=== PATIENT | female | born 1990 | race Caucasian/White ===

== ENCOUNTER 2019-06-07 02:51 | Inpatient (IN) ==
[2019-06-07] MEDS ORDERED: PENICILLIN G POTASSIUM 6 MU in DEXTROSE 5% 250 ML IV STA (03:18)
[2019-06-07] MEDS: LACTATED RINGER'S 1,000 ML IV PRN ×3 (03:30→11:10)
[2019-06-07] MEDS ORDERED: ePHEDrine sulfate 50 MG/ML AMP ONE (03:36)
[2019-06-07] MEDS ORDERED: fentaNYL citrate 100 MCG/2 ML VIAL ONE (03:36)
[2019-06-07] MEDS ORDERED: BUPIVACAINE 0.25% 30 ML VIAL ONE ×2 (03:36→09:00)
[2019-06-07] MEDS ORDERED: fentaNYL 2MCG/ML ROPIV 1.25MG/ML 100 ML BAG EPI ONE (03:37)
[2019-06-07 03:42] LABS: Hematocrit (blood only) 34.5 % (37-47); Hemoglobin 11.7 g/dL (12.0-16.0); Mean Corpuscular Hemoglobin 29.5 pg (25-34); Mean Corpuscular Volume 87.1 fL (80-100); Mean Platelet Volume 11.3 fL (7.4-10.4); Platelet Count 245 K/uL (130-400); RDW Coefficient of Variation 14.1 % (11.5-14.5); RDW Standard Deviation 44.1 fL (36.4-46.3); Red Blood Count 3.96 M/uL (4.2-5.4); White Blood Count 10.57 K/uL (4.8-10.8)
[2019-06-07 03:55] LABS: Mean Corpuscular Hgb Conc 33.9 g/dL (32-36)
--- NOTE | 2019-06-07 05:12 | Anesthesiology Consultation ---
Date of Service June 07, 2019 Assessment & Plan Chart Review Chart Review: Acceptable Risk for Labor Epidural Consults Requested none History Height/Weight Height: 5 ft 3 in Weight: 76.657 kg Allergies Allergy/AdvReac Type Severity Reaction Status Date / Time No Known Allergies Allergy Verified 05/30/19 10:33 Medications Home Medications Medication Instructions Recorded Confirmed Last Taken prenat.vits,toy,wle-eibj-lvxfh 1 tab PO DAILY 01/07/19 05/30/19 Unknown ferrous sulfate PO 04/18/19 05/30/19 Unknown Active Medications Generic Name Dose Route Start Last Admin Trade Name Freq PRN Reason Stop Dose Admin Lactated Ringer's 1,000 mls @ 125 mls/hr 06/07/19 03:18 06/07/19 04:59 Lr IV 06/09/19 03:17 999 mls/hr .Q8H PRN Infusion L&D Protocol Protocol Past Medical History Medical History History of anemia History of cardiac murmur as a child History of varicella Hx of migraines Past Family History Family History Grandmother (Maternal) Neoplasm of brain Past Surgical History Surgical History No significant past surgical history Social History Smoking Status: Never smoker Do You Dip or Chew Tobacco: No Hx Alcohol Use: No Hx Substance Use: No substance use type: does not use Physical Exam Vital Signs Last Vital Signs Temp 36.7 C 06/07/19 03:26 Pulse 97 H 06/07/19 05:08 Resp 18 06/07/19 03:26 BP 113/66 06/07/19 05:08 Pulse Ox 100 06/07/19 05:08 Testing Laboratory Results 06/07/19 03:33
[2019-06-07] MEDS ORDERED: fentaNYL 2MCG/ML ROPIV 1.25MG/ML 100 ML BAG EPI PRN (05:14)
[2019-06-07] MEDS ORDERED: NALOXONE HCL 0.4 MG/1 ML VIAL/CARP IV PRN (05:14)
[2019-06-07] MEDS ORDERED: DiphenhydrAMINE HCL 50 MG/ML VIAL IV PRN (05:14)
[2019-06-07] MEDS ORDERED: ePHEDrine sulfate 50 MG/ML AMP IV PRN (05:14)
[2019-06-07] MEDS ORDERED: NALOXONE HCL 1 MG in SODIUM CHLORIDE 0.9% 1000ML 1,000 ML IV PRN (05:14)
[2019-06-07] MEDS ORDERED: NALBUPHINE HCL INJ 10 MG/ML AMP IV PRN (05:14)
[2019-06-07] MEDS: PENICILLIN G POTASSIUM 3 MU in DEXTROSE 5% 100 ML IV PRN ×2 (07:38→11:22)
--- NOTE | 2019-06-07 09:01 | History & Physical Report ---
Date of Service June 07, 2019 Assessment & Plan (1) Normal labor: (2) Group beta Strep positive: pt has been admitted. labs. has epidural and is comfortable. will see how arom augments labor pattern. receiving 2nd dose of pcn for gbs pos. fhts categ 1. History of Present Illness Chief Complaint: Regular ctx Primary Care Provider: NO PCP 29yo at 37+wks ega presents to L&D with above cc. Patient had ctx all day yesterday that became closer and stronger overnight. Came to L&D in cut off [place] today and was 5cm with regular ctx pattern and was admitted in labor. pnc c/b 1. GBS Pos pnl rh pos, rubella immune, gbs pos obh: G1 gynh: no stds, normal pap smears pmh: h/o migraines psh: neg Allergies Allergy/AdvReac Type Severity Reaction Status Date / Time No Known Allergies Allergy Verified 05/30/19 10:33 Home Medications Home Medications Medication Instructions Recorded Confirmed Type ferrous sulfate 325 mg PO DAILY 06/07/19 06/07/19 History vit-iron fum-folic ac 1 tab PO DAILY 06/07/19 06/07/19 History [ Vitamin] Patient History Medical History History of anemia History of cardiac murmur as a child History of varicella Hx of migraines Surgical History No significant past surgical history Family History Grandmother (Maternal) Neoplasm of brain Social History (Updated 01/10/19 @ 06:27 by Mai Gray) Preferred Language: Kazakh Communication Ability: Effective 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 Beliefs That Will Affect Care: None marital status: Current Living Situation: Spouse Other Information That Helps Us Care for You: No Feels Safe at Home: Yes Safety Concerns: Feels Safe At This Time Smoking Status: Never smoker Do You Dip or Chew Tobacco: No ; Second Hand Exposure: No ; Tobacco Cessation Education Requested by Patient: No Hx Alcohol Use: No Hx Substance Use: No Review of Systems as per Subjective / HPI Physical Exam Constitutional: WD/WN, vitals as above Respiratory: normal respiratory effort, lungs clear to auscultation Cardiovascular: Rate/Rhythm: regular rate and regular rhythm Gastrointestinal (Abdomen): soft gravid nt, efw 6-7# Musculoskeletal: no edema nontender calves Neurologic: grossly normal Psychiatric: A+Ox3, euthymic affect Genitourinary: Manual OB Exam: + cervical dilation 5 cm, + cervical effacement 90%, + station -1 and + amniotic fluid (arom) clear OB Exam Monitor Tracing: + external FHT monitor used (135 mod variability), + external uterine monitor used (q2-3), + category I and + normal FHT variability Results & Data Vital Signs (Past 12 Hours) Vital Signs Temp Pulse Resp BP Pulse Ox 06/07/19 08:53 86 100 06/07/19 08:48 82 100 06/07/19 08:44 85 18 122/71 06/07/19 08:43 85 100 06/07/19 08:38 78 100 06/07/19 08:33 88 123/92 100 06/07/19 08:31 98.2 F 20 06/07/19 08:28 71 100 06/07/19 08:23 77 97 06/07/19 08:18 76 99 06/07/19 08:13 73 113/62 97 06/07/19 08:08 73 97 06/07/19 08:03 75 98 06/07/19 07:59 79 18 110/60 06/07/19 07:58 82 99 06/07/19 07:53 81 99 06/07/19 07:48 75 99 06/07/19 07:43 82 18 130/67 100 06/07/19 07:38 89 99 06/07/19 07:33 78 100 06/07/19 07:29 81 125/66 06/07/19 07:28 82 99 06/07/19 07:23 75 99 06/07/19 07:18 84 99 06/07/19 07:15 91 H 117/62 06/07/19 07:13 89 99 06/07/19 07:08 96 H 100 06/07/19 07:03 91 H 99 06/07/19 07:00 98.2 F 20 06/07/19 06:58 94 H 102/55 L 99 06/07/19 06:53 89 98 06/07/19 06:48 91 H 99 06/07/19 06:45 88 107/56 L 06/07/19 06:43 101 H 98 06/07/19 06:38 101 H 98 06/07/19 06:33 88 98 06/07/19 06:30 94 H 108/57 L 06/07/19 06:28 99 H 98 06/07/19 06:23 95 H 98 06/07/19 06:18 94 H 99 06/07/19 06:13 90 102/59 L 98 06/07/19 06:08 97 H 98 06/07/19 06:03 104 H 98 06/07/19 05:58 95 H 103/59 L 98 06/07/19 05:53 98 H 98 06/07/19 05:48 99 H 98 06/07/19 05:43 109 H 96/57 L 99 06/07/19 05:38 103 H 98 06/07/19 05:33 97 H 99 06/07/19 05:29 93 H 97/56 L 06/07/19 05:28 92 H 99 06/07/19 05:23 87 99 06/07/19 05:18 93 H 98 06/07/19 05:13 83 100 06/07/19 05:11 90 119/64 06/07/19 05:08 97 H 113/66 100 06/07/19 05:05 85 110/56 L 06/07/19 05:03 91 H 100 06/07/19 05:02 85 99/68 L 06/07/19 05:01 77 119/56 L 06/07/19 04:59 90 102/57 L 06/07/19 04:58 83 99 06/07/19 04:57 73 94/50 L 06/07/19 04:56 97 H 105/51 L 06/07/19 04:53 81 100 06/07/19 04:48 84 100 06/07/19 04:43 71 100 06/07/19 04:38 80 100 06/07/19 04:33 87 100 06/07/19 04:28 75 100 06/07/19 04:23 73 100 06/07/19 04:18 79 100 06/07/19 04:13 76 100 06/07/19 04:03 68 100 06/07/19 03:58 79 100 06/07/19 03:53 69 100 06/07/19 03:48 72 100 06/07/19 03:26 98.1 F 18 06/07/19 03:04 80 126/78 06/07/19 03:03 98.1 F 20 Code Status & VTE Plan VTE Prophylaxis Plan VTE Prophylaxis will be ordered: No
[2019-06-07] MEDS ORDERED: OXYTOCIN 30 UNITS/500 ML BAG IV PRN ×2 (09:02→12:44)
--- NOTE | 2019-06-07 09:53 | Labor Progress Brief Note ---
Date of Service June 07, 2019 Subjective Reason For Note: Other (Change of shift) 29yo ; EDC 06/23/19 at 37 (+) wks [place], admitted in active labor. Patient with benign course, received epidural for pain control. Assessment & Plan (1) Supervision of normal first : - tracing Cat II - patient comfortable - continue present plan Physical Exam Gastrointestinal (Abdomen): Gravid, vtx, (+) FHT's, EFW 7 lbs Genitourinary: OB Exam Monitor Tracing: + category II and + normal FHT variability Cervix: 8-9/(+)1 Results & Data Vital Signs (Past 12 Hours) Vital Signs Temp Pulse Resp BP Pulse Ox 06/07/19 09:48 88 99 06/07/19 09:47 77 129/80 06/07/19 09:44 62 119/67 06/07/19 09:43 67 97 06/07/19 09:41 68 130/74 06/07/19 09:38 67 122/69 98 06/07/19 09:35 72 130/73 06/07/19 09:33 73 99 06/07/19 09:32 70 18 118/66 06/07/19 09:29 67 124/72 06/07/19 09:28 77 99 06/07/19 09:27 74 118/73 06/07/19 09:24 70 132/63 06/07/19 09:23 71 99 06/07/19 09:20 77 141/76 H 06/07/19 09:18 79 99 06/07/19 09:17 74 142/77 H 06/07/19 09:15 68 135/64 06/07/19 09:13 81 99 06/07/19 09:12 73 130/68 06/07/19 09:08 80 100 06/07/19 09:03 77 100 06/07/19 08:59 77 124/58 L 06/07/19 08:58 81 99 06/07/19 08:53 86 100 06/07/19 08:48 82 100 06/07/19 08:44 85 18 122/71 06/07/19 08:43 85 100 06/07/19 08:38 78 100 06/07/19 08:33 88 123/92 100 06/07/19 08:31 98.2 F 20 06/07/19 08:28 71 100 06/07/19 08:23 77 97 06/07/19 08:18 76 99 06/07/19 08:13 73 113/62 97 06/07/19 08:08 73 97 06/07/19 08:03 75 98 06/07/19 07:59 79 18 110/60 06/07/19 07:58 82 99 06/07/19 07:53 81 99 06/07/19 07:48 75 99 06/07/19 07:43 82 18 130/67 100 06/07/19 07:38 89 99 06/07/19 07:33 78 100 06/07/19 07:29 81 125/66 06/07/19 07:28 82 99 06/07/19 07:23 75 99 06/07/19 07:18 84 99 06/07/19 07:15 91 H 117/62 06/07/19 07:13 89 99 06/07/19 07:08 96 H 100 06/07/19 07:03 91 H 99 06/07/19 07:00 98.2 F 20 06/07/19 06:58 94 H 102/55 L 99 06/07/19 06:53 89 98 06/07/19 06:48 91 H 99 06/07/19 06:45 88 107/56 L 06/07/19 06:43 101 H 98 06/07/19 06:38 101 H 98 06/07/19 06:33 88 98 06/07/19 06:30 94 H 108/57 L 06/07/19 06:28 99 H 98 06/07/19 06:23 95 H 98 06/07/19 06:18 94 H 99 06/07/19 06:13 90 102/59 L 98 06/07/19 06:08 97 H 98 06/07/19 06:03 104 H 98 06/07/19 05:58 95 H 103/59 L 98 06/07/19 05:53 98 H 98 06/07/19 05:48 99 H 98 06/07/19 05:43 109 H 96/57 L 99 06/07/19 05:38 103 H 98 06/07/19 05:33 97 H 99 06/07/19 05:29 93 H 97/56 L 06/07/19 05:28 92 H 99 06/07/19 05:23 87 99 06/07/19 05:18 93 H 98 06/07/19 05:13 83 100 06/07/19 05:11 90 119/64 06/07/19 05:08 97 H 113/66 100 06/07/19 05:05 85 110/56 L 06/07/19 05:03 91 H 100 06/07/19 05:02 85 99/68 L 06/07/19 05:01 77 119/56 L 06/07/19 04:59 90 102/57 L 06/07/19 04:58 83 99 06/07/19 04:57 73 94/50 L 06/07/19 04:56 97 H 105/51 L 06/07/19 04:53 81 100 06/07/19 04:48 84 100 06/07/19 04:43 71 100 06/07/19 04:38 80 100 06/07/19 04:33 87 100 06/07/19 04:28 75 100 06/07/19 04:23 73 100 06/07/19 04:18 79 100 06/07/19 04:13 76 100 06/07/19 04:03 68 100 06/07/19 03:58 79 100 06/07/19 03:53 69 100 06/07/19 03:48 72 100 06/07/19 03:26 98.1 F 18 06/07/19 03:04 80 126/78 06/07/19 03:03 98.1 F 20
[2019-06-07] MEDS: OXYTOCIN 30 UNITS/500 ML BAG IV PRN ×2 (11:29→12:06)
--- NOTE | 2019-06-07 11:56 | Delivery Summary ---
Vaginal Delivery Summary Date of Service June 07, 2019 Vaginal Delivery Summary Findings: Viable male with Apgars of 8 and 9 baby delivered over a midline second-degree laceration, left periurethral laceration, cord gases and cord blood samples obtained, placenta delivered spontaneously, lacerations repaired with 4-0 Vicryl in a routine fashion, estimated blood loss 300 cc Labor note: The patient is a 29-year-old 1 para 0 with an EDC of 23 June at 37+ weeks gestational age who presented to labor and delivery in active labor. The patient's course was remarkable for a positive GBS culture. Upon admission the patient was 5 cm dilated up. The patient was uncomfortable, anesthesia was consulted, and an epidural was placed. For the positive GBS she was started on penicillin, 6,000,000 unit loading dose and 4, 000,000 units every 4 hours till delivery. After her second dose of penicillin she had artificial rupture of membranes for clear fluid. The patient progressed to full dilatation and began her second stage. She pushed for approximately 20 minutes delivering a viable male with description as above. Cord was clamped and cut, cord gases and cord blood samples were obtained. Placenta delivered spontaneously. Inspection of the perineum showed a midline second- degree laceration, with a second-degree left periurethral laceration. Both lacerations were repaired with 4-0 Vicryl. Estimated blood loss 300 cc. Sponge and needle count was correct.
[2019-06-07 11:59] LABS: Cord Venous Blood HCO3 21 mmol/L (18.4-26.8); Cord Venous Blood PCO2 36 mmHg (30.4-57.2); Cord Venous Blood PO2 23 mmHg (14.1-43.3); Cord Venous Blood pH 7.37 (7.20-7.44)
[2019-06-07 12:02] LABS: Base Excess Cord Arterial Bld -4.8 mEq/L (-9-1.8); CO2 Cord Arterial Blood 38 mmHg (39.1-73.5); HCO3 Cord Arterial Blood 20 mmol/L (19.7-28.5); PO2 Cord Arterial Blood 23.3 % (4.1-31.7); pH Cord Arterial Blood 7.35 (7.1-7.38)
[2019-06-07 12:03] LABS: O2 Saturation Cord Venous Bld < 60.0 % (<68); Oxygen Sat Cord Arterial Blood < 60.0 % (<60)
[2019-06-07] MEDS ORDERED: SUPERCREAM 0.870% 15 GM JAR EXT PRN (12:44)
[2019-06-07] MEDS ORDERED: HYDROCORTISONE ACETATE 25 MG SUPP PR PRN (12:44)
[2019-06-07] MEDS ORDERED: BENZOCAINE 20% AER SPR 82.5 GM CAN EXT PRN (12:44)
[2019-06-07] MEDS ORDERED: DIPHTHERIA/TETANUS/PERTUSSIS 0.5 ML SYR/VIAL IM ONE (12:44)
[2019-06-07] MEDS ORDERED: IBUPROFEN 600 MG TAB PO ONE (12:49)
[2019-06-07] MEDS: ACETAMINOPHEN W/CODEINE #3 1 TAB PO PRN ×2 (14:24→23:51)
--- NOTE | 2019-06-07 16:12 | Anesthesia Procedure Note ---
Date of Service June 07, 2019 Anesthesia Post Epidural Note Vital Signs Vital Signs: Temp Pulse Resp BP Pulse Ox 36.7 C 60 18 84/50 L 100 06/07/19 14:26 06/07/19 16:09 06/07/19 14:26 06/07/19 16:09 06/07/19 11:43 Pain Intensity Bilateral Abdomen: Pain Intensity: 1 Lower Back: Pain Intensity: 4 Notes Mental Status: alert / awake / arousable and participated in evaluation Patient Amnestic to Procedure: No Nausea / Vomiting: adequately controlled Pain: adequately controlled Airway Patency, RR, SpO2: stable & adequate BP & HR: stable & adequate Hydration State: stable & adequate Neuraxial Anesthesia: was administered and sensory block is resolving Anesthetic Complications: no major complications apparent and Pt Satisfied with anesthetic care Epidural: Removed without complications and With tip intact
[2019-06-07] MEDS ORDERED: METHYLERGONOVINE MALEATE 0.2 MG/ML AMP ONE (16:22)
[2019-06-07] MEDS ORDERED: miSOPROStoL 200 MCG TAB PR ONE (16:27)
[2019-06-07] MEDS ORDERED: SODIUM CHLORIDE 0.9% 250 ML IV PRN ×2 (16:27→17:19)
[2019-06-07] MEDS ORDERED: METHYLERGONOVINE MALEATE 0.2 MG/ML AMP IM ONE (16:27)
--- NOTE | 2019-06-07 16:36 | Obstetrical Progress Note ---
Date of Service June 07, 2019 Assessment & Plan (1) hemorrhage: - all pads weighed and counted since delivery - additional 800 cc of blood - will give Methergine IM now - stat H/H ordered - Type & Cross for 2 units - 2nd IV started - Elkins catheter reinserted - may need to consider Bakri balloon if bleeding continues - explained to patient and Subjective Called to evaluate patient for increased bleeding and decreased BP Physical Exam Genitourinary: 560 cc of clotted and unclotted blood evacuated from uterus, uterus firm post evacuation. Cytotec 800ug placed rectally. Results & Data Vital Signs (Past 12 Hours) Vital Signs Temp Pulse Resp BP Pulse Ox 06/07/19 16:24 105 H 111/64 06/07/19 16:22 87 111/64 06/07/19 16:15 69 82/47 L 06/07/19 16:09 60 84/50 L 06/07/19 16:04 65 88/40 L 06/07/19 15:55 80 112/58 L 06/07/19 15:40 93 H 121/59 L 06/07/19 15:25 159/70 H 06/07/19 14:54 68 96/62 L 06/07/19 14:40 69 89/55 L 06/07/19 14:38 65 90/56 L 06/07/19 14:35 60 85/52 L 06/07/19 14:34 60 81/45 L 06/07/19 14:26 98.1 F 72 18 115/72 06/07/19 14:24 80 114/73 06/07/19 14:09 76 110/64 06/07/19 13:54 73 114/62 06/07/19 13:40 78 121/63 06/07/19 13:35 20 06/07/19 13:24 82 115/67 06/07/19 13:09 72 116/65 06/07/19 12:54 76 116/65 06/07/19 12:43 90 114/63 06/07/19 12:30 96 H 18 116/63 06/07/19 12:15 20 06/07/19 12:00 20 06/07/19 11:45 98.1 F 20 06/07/19 11:43 94 H 100 06/07/19 11:38 96 H 100 06/07/19 11:33 90 99 06/07/19 11:28 108 H 18 99 06/07/19 11:23 75 99 06/07/19 11:18 72 99 06/07/19 11:13 76 100 06/07/19 11:08 86 100 06/07/19 11:03 82 100 06/07/19 10:58 78 100 06/07/19 10:53 76 100 06/07/19 10:48 72 100 06/07/19 10:43 72 100 06/07/19 10:38 73 98 06/07/19 10:33 68 98 06/07/19 10:28 77 99 06/07/19 10:23 71 99 06/07/19 10:18 71 99 06/07/19 10:17 98.1 F 20 06/07/19 10:13 74 99 06/07/19 10:08 77 100 06/07/19 10:03 77 99 06/07/19 09:58 86 99 06/07/19 09:53 75 99 06/07/19 09:50 74 18 133/76 06/07/19 09:48 88 99 06/07/19 09:47 77 18 129/80 06/07/19 09:44 62 119/67 06/07/19 09:43 67 97 06/07/19 09:41 68 130/74 06/07/19 09:38 67 122/69 98 06/07/19 09:35 72 130/73 06/07/19 09:33 73 99 06/07/19 09:32 70 18 118/66 06/07/19 09:29 67 124/72 06/07/19 09:28 77 99 06/07/19 09:27 74 118/73 06/07/19 09:24 70 132/63 06/07/19 09:23 71 99 06/07/19 09:20 77 141/76 H 06/07/19 09:18 79 99 06/07/19 09:17 74 142/77 H 06/07/19 09:15 68 135/64 06/07/19 09:13 81 99 06/07/19 09:12 73 130/68 06/07/19 09:08 80 100 06/07/19 09:03 77 100 06/07/19 08:59 77 20 124/58 L 06/07/19 08:58 81 99 06/07/19 08:53 86 100 06/07/19 08:48 82 100 06/07/19 08:44 85 18 122/71 06/07/19 08:43 85 100 06/07/19 08:38 78 100 06/07/19 08:33 88 123/92 100 06/07/19 08:31 98.2 F 20 06/07/19 08:28 71 100 06/07/19 08:23 77 97 06/07/19 08:18 76 99 06/07/19 08:13 73 113/62 97 06/07/19 08:08 73 97 06/07/19 08:03 75 98 06/07/19 07:59 79 18 110/60 06/07/19 07:58 82 99 06/07/19 07:53 81 99 06/07/19 07:48 75 99 06/07/19 07:43 82 18 130/67 100 06/07/19 07:38 89 99 06/07/19 07:33 78 100 06/07/19 07:29 81 125/66 06/07/19 07:28 82 99 06/07/19 07:23 75 99 06/07/19 07:18 84 99 06/07/19 07:15 91 H 117/62 06/07/19 07:13 89 99 06/07/19 07:08 96 H 100 06/07/19 07:03 91 H 99 06/07/19 07:00 98.2 F 20 06/07/19 06:58 94 H 102/55 L 99 06/07/19 06:53 89 98 06/07/19 06:48 91 H 99 06/07/19 06:45 88 107/56 L 06/07/19 06:43 101 H 98 06/07/19 06:38 101 H 98 06/07/19 06:33 88 98 06/07/19 06:30 94 H 108/57 L 06/07/19 06:28 99 H 98 06/07/19 06:23 95 H 98 06/07/19 06:18 94 H 99 06/07/19 06:13 90 102/59 L 98 06/07/19 06:08 97 H 98 06/07/19 06:03 104 H 98 06/07/19 05:58 95 H 103/59 L 98 06/07/19 05:53 98 H 98 06/07/19 05:48 99 H 98 06/07/19 05:43 109 H 96/57 L 99 06/07/19 05:38 103 H 98 06/07/19 05:33 97 H 99 06/07/19 05:29 93 H 97/56 L 06/07/19 05:28 92 H 99 06/07/19 05:23 87 99 06/07/19 05:18 93 H 98 06/07/19 05:13 83 100 06/07/19 05:11 90 119/64 06/07/19 05:08 97 H 113/66 100 06/07/19 05:05 85 110/56 L 06/07/19 05:03 91 H 100 06/07/19 05:02 85 99/68 L 06/07/19 05:01 77 119/56 L 06/07/19 04:59 90 102/57 L 06/07/19 04:58 83 99 06/07/19 04:57 73 94/50 L 06/07/19 04:56 97 H 105/51 L 06/07/19 04:53 81 100 06/07/19 04:48 84 100 06/07/19 04:43 71 100 06/07/19 04:38 80 100 06/07/19 04:33 87 100 PG Care Time/CCT Total # of Minutes Spent Total Time Spent with Patient: Total time spent is greater than 50% in coordination of care (as documented) at patient's floor/unit and/or counseling patient:
[2019-06-07] MEDS ORDERED: LACTATED RINGER'S 1,000 ML IV PRN (16:38)
[2019-06-07] MEDS: IBUPROFEN 600 MG TAB PO PRN (16:51)
[2019-06-07 16:53] LABS: Hematocrit (blood only) 25.3 % (37-47); Hemoglobin 8.6 g/dL (12.0-16.0)
--- NOTE | 2019-06-07 18:07 | Obstetrical Progress Note ---
Date of Service June 07, 2019 Assessment & Plan (1) hemorrhage: -Hemoglobin is 8.6, suspect that the value will go much lower as the patient becomes more hemodynamically stable. -The patient was orthostatic prior to this latest blood loss and could not stand and passed out twice -As such I do not believe the patient will tolerate the anemia. -Discussed with the patient and recommend transfusing 2 units of packed red blood cells at this time -Risks, benefits, discussed, all questions answered, and permit signed -We will proceed with transfusing 2 units Subjective Patient tired, but stable. Bleeding has markedly decreased. Results & Data Vital Signs (Past 12 Hours) Vital Signs Temp Pulse Resp BP Pulse Ox 06/07/19 18:01 72 129/80 06/07/19 17:54 71 128/68 06/07/19 17:39 75 122/71 06/07/19 17:24 75 121/62 06/07/19 17:09 66 132/63 06/07/19 16:54 64 132/63 06/07/19 16:39 82 132/61 06/07/19 16:37 95 H 145/67 H 06/07/19 16:24 105 H 111/64 06/07/19 16:22 87 111/64 06/07/19 16:15 69 82/47 L 06/07/19 16:09 60 84/50 L 06/07/19 16:04 65 88/40 L 06/07/19 15:55 80 112/58 L 06/07/19 15:40 93 H 121/59 L 06/07/19 15:25 159/70 H 06/07/19 14:54 68 96/62 L 06/07/19 14:40 69 89/55 L 06/07/19 14:38 65 90/56 L 06/07/19 14:35 60 85/52 L 06/07/19 14:34 60 81/45 L 06/07/19 14:26 98.1 F 72 18 115/72 06/07/19 14:24 80 114/73 06/07/19 14:09 76 110/64 06/07/19 13:54 73 114/62 06/07/19 13:40 78 121/63 06/07/19 13:35 20 06/07/19 13:24 82 115/67 06/07/19 13:09 72 116/65 06/07/19 12:54 76 116/65 06/07/19 12:43 90 114/63 06/07/19 12:30 96 H 18 116/63 06/07/19 12:15 20 06/07/19 12:00 20 06/07/19 11:45 98.1 F 20 06/07/19 11:43 94 H 100 06/07/19 11:38 96 H 100 06/07/19 11:33 90 99 06/07/19 11:28 108 H 18 99 06/07/19 11:23 75 99 06/07/19 11:18 72 99 06/07/19 11:13 76 100 06/07/19 11:08 86 100 06/07/19 11:03 82 100 06/07/19 10:58 78 100 06/07/19 10:53 76 100 06/07/19 10:48 72 100 06/07/19 10:43 72 100 06/07/19 10:38 73 98 06/07/19 10:33 68 98 06/07/19 10:28 77 99 06/07/19 10:23 71 99 06/07/19 10:18 71 99 06/07/19 10:17 98.1 F 20 06/07/19 10:13 74 99 06/07/19 10:08 77 100 06/07/19 10:03 77 99 06/07/19 09:58 86 99 06/07/19 09:53 75 99 06/07/19 09:50 74 18 133/76 06/07/19 09:48 88 99 06/07/19 09:47 77 18 129/80 06/07/19 09:44 62 119/67 06/07/19 09:43 67 97 06/07/19 09:41 68 130/74 06/07/19 09:38 67 122/69 98 06/07/19 09:35 72 130/73 06/07/19 09:33 73 99 06/07/19 09:32 70 18 118/66 06/07/19 09:29 67 124/72 06/07/19 09:28 77 99 06/07/19 09:27 74 118/73 06/07/19 09:24 70 132/63 06/07/19 09:23 71 99 06/07/19 09:20 77 141/76 H 06/07/19 09:18 79 99 06/07/19 09:17 74 142/77 H 06/07/19 09:15 68 135/64 06/07/19 09:13 81 99 06/07/19 09:12 73 130/68 06/07/19 09:08 80 100 06/07/19 09:03 77 100 06/07/19 08:59 77 20 124/58 L 06/07/19 08:58 81 99 06/07/19 08:53 86 100 06/07/19 08:48 82 100 06/07/19 08:44 85 18 122/71 06/07/19 08:43 85 100 06/07/19 08:38 78 100 06/07/19 08:33 88 123/92 100 06/07/19 08:31 98.2 F 20 06/07/19 08:28 71 100 06/07/19 08:23 77 97 06/07/19 08:18 76 99 06/07/19 08:13 73 113/62 97 06/07/19 08:08 73 97 06/07/19 08:03 75 98 06/07/19 07:59 79 18 110/60 06/07/19 07:58 82 99 06/07/19 07:53 81 99 06/07/19 07:48 75 99 06/07/19 07:43 82 18 130/67 100 06/07/19 07:38 89 99 06/07/19 07:33 78 100 06/07/19 07:29 81 125/66 06/07/19 07:28 82 99 06/07/19 07:23 75 99 06/07/19 07:18 84 99 06/07/19 07:15 91 H 117/62 06/07/19 07:13 89 99 06/07/19 07:08 96 H 100 06/07/19 07:03 91 H 99 06/07/19 07:00 98.2 F 20 06/07/19 06:58 94 H 102/55 L 99 06/07/19 06:53 89 98 06/07/19 06:48 91 H 99 06/07/19 06:45 88 107/56 L 06/07/19 06:43 101 H 98 06/07/19 06:38 101 H 98 06/07/19 06:33 88 98 06/07/19 06:30 94 H 108/57 L 06/07/19 06:28 99 H 98 06/07/19 06:23 95 H 98 06/07/19 06:18 94 H 99 06/07/19 06:13 90 102/59 L 98 06/07/19 06:08 97 H 98 PG Care Time/CCT Total # of Minutes Spent Total Time Spent with Patient: Total time spent is greater than 50% in coordination of care (as documented) at patient's floor/unit and/or counseling patient:
[2019-06-07] MEDS: DOCUSATE SODIUM 100 MG CAP PO SCH (21:05)
[2019-06-08] MEDS: IBUPROFEN 600 MG TAB PO PRN ×4 (02:40→21:41)
--- NOTE | 2019-06-08 07:13 | Obstetrical Progress Note ---
Date of Service June 08, 2019 Assessment & Plan (1) Encounter for care and examination after delivery: GBS+, PPD1 after with PPH s/p transfusion 2u pRBCs. 1) PPH - 2u pRBC transfusion last night - follow Hg this AM and tomorrow - Hg 8.6 this AM 2) - continue supportive care - encourage ambulation as tolerated (2) hemorrhage: (3) Group beta Strep positive: (4) Supervision of normal first : Supervising Physician Co-Signing Physician Notes Resident Physician Supervision Note: I was present with Dr. Atwood during the history and exam. I discussed the case with the resident and agree with the findings and plan as documented in the note. Any exceptions or clarifications are listed here: Hgb 9.3 after 2u PRBC's. Will d/c Elkins and ambulate Documented By: Alexis Roman Jr, MD, FACOG Subjective No complaints this morning. Feeling well. Review of Systems Constitutional: + fatigue; no fever and no chills Respiratory: no cough and no dyspnea Cardiovascular: no chest pain, no syncope, no edema and no calf pain Gastrointestinal: + cramping; no abdominal pain, no nausea, no vomiting, no constipation and no diarrhea/loose stools Genitourinary: no dysuria and no difficulty urinating Neurologic: no headache(s) Physical Exam Constitutional: well developed and well nourished Respiratory: normal respiratory effort; no respiratory distress, no labored breathing and no cough Auscultation: no crackles, no rales, no rhonchi and no wheezes Cardiovascular: Rate/Rhythm: regular rate and regular rhythm Heart Sounds: no gallop, no murmur and no cardiac rub Extremities: no pedal edema Gastrointestinal (Abdomen): Inspection/Auscultation: + abdomen distended and normal bowel sounds Percussion/Palpation: abdomen soft; no guarding Musculoskeletal: no tenderness to palpation of calves bilaterally Genitourinary: Uterus small and firm, palpable in midline 1cm below level of umbilicus, no tenderness to palpation. Results & Data Vital Signs (Past 12 Hours) Vital Signs Temp Pulse Pulse Resp BP BP Pulse Ox 06/08/19 04:00 37 C 78 18 112/72 06/07/19 23:01 63 130/68 06/07/19 23:00 37 C 63 18 130/68 99 06/07/19 22:59 72 98 06/07/19 22:54 70 99 06/07/19 22:49 72 99 06/07/19 22:46 70 117/65 06/07/19 22:44 66 98 06/07/19 22:42 70 91 06/07/19 22:39 73 100 06/07/19 22:34 69 99 06/07/19 22:31 71 128/74 06/07/19 22:30 36.7 C 71 18 128/74 99 06/07/19 22:29 69 99 06/07/19 22:24 73 98 06/07/19 22:19 71 98 06/07/19 22:16 64 127/63 06/07/19 22:14 67 97 06/07/19 22:09 73 98 06/07/19 22:04 77 91 06/07/19 22:01 74 128/62 06/07/19 22:00 37 C 73 18 128/62 99 06/07/19 21:59 87 97 06/07/19 21:54 75 97 06/07/19 21:49 80 97 06/07/19 21:46 78 129/65 06/07/19 21:44 75 98 06/07/19 21:39 76 124/61 97 06/07/19 21:37 178/108 H 06/07/19 21:34 80 98 06/07/19 21:30 36.7 C 76 18 124/61 100 06/07/19 21:29 83 95 06/07/19 21:27 78 90 06/07/19 21:24 73 98 06/07/19 21:19 78 99 06/07/19 21:17 70 117/55 L 06/07/19 21:15 36.8 C 70 18 117/55 L 98 06/07/19 21:14 69 95 06/07/19 21:09 66 98 06/07/19 21:04 68 99 06/07/19 21:00 36.7 C 76 18 132/60 99 06/07/19 20:59 71 99 06/07/19 20:54 76 98 06/07/19 20:49 67 98 06/07/19 20:46 63 119/60 06/07/19 20:45 36.5 C 71 18 119/60 98 06/07/19 20:44 71 100 06/07/19 20:40 72 94 06/07/19 20:39 65 97 06/07/19 20:34 63 98 06/07/19 20:33 67 122/58 L 06/07/19 20:30 37 C 77 18 130/58 L 100 06/07/19 20:29 68 99 06/07/19 20:28 76 123/60 06/07/19 20:25 73 94 06/07/19 20:24 71 100 06/07/19 20:23 77 130/58 L 06/07/19 20:19 69 99 06/07/19 20:18 72 125/60 06/07/19 20:15 37 C 68 18 123/60 100 06/07/19 20:14 72 99 06/07/19 20:12 37.1 C 70 18 120/60 100 06/07/19 20:09 64 98 06/07/19 20:06 70 138/73 06/07/19 20:04 73 99 06/07/19 19:59 78 99 06/07/19 19:54 73 100 06/07/19 19:51 68 133/60 06/07/19 19:49 67 99 06/07/19 19:44 72 99 06/07/19 19:39 70 99 06/07/19 19:36 65 116/58 L 06/07/19 19:35 37 C 65 18 116/58 L 100 06/07/19 19:34 69 97 06/07/19 19:29 68 99 06/07/19 19:24 66 98 06/07/19 19:21 72 113/60 06/07/19 19:19 70 98 06/07/19 19:14 76 99 06/07/19 19:09 73 100 06/07/19 06/07/19 06/07/19 Range/Units 16:29 11:25 11:25 Hgb 8.6 L D (12.0-16.0) g/dL Hct 25.3 L (37-47) % Cord ABG pH 7.35 (7.1-7.38) Cord ABG pCO2 38 L (39.1-73.5) mmHg Cord ABG pO2 23.3 (4.1-31.7) % Cord ABG HCO3 20 (19.7-28.5) mmol/L Cord ABG Base Excess -4.8 (-9-1.8) mEq/L Cord ABG O2 Sat < 60.0 (<60) % Cord VBG pH 7.37 (7.20-7.44) Cord VBG pCO2 36 (30.4-57.2) mmHg Cord VBG pO2 23 (14.1-43.3) mmHg Cord VBG HCO3 21 (18.4-26.8) mmol/L Cord VBG Base Excess -4.0 (-7.7-1.9) mEq/L Cord VBG O2 Sat < 60.0 (<68) % Barometric Pressure 736.0 735.9 mm/Hg Blood Gas Comments PARKER PARKER Blood Type Antibody Screen Crossmatch 06/07/19 Range/Units 03:33 Hgb (12.0-16.0) g/dL Hct (37-47) % Cord ABG pH (7.1-7.38) Cord ABG pCO2 (39.1-73.5) mmHg Cord ABG pO2 (4.1-31.7) % Cord ABG HCO3 (19.7-28.5) mmol/L Cord ABG Base Excess (-9-1.8) mEq/L Cord ABG O2 Sat (<60) % Cord VBG pH (7.20-7.44) Cord VBG pCO2 (30.4-57.2) mmHg Cord VBG pO2 (14.1-43.3) mmHg Cord VBG HCO3 (18.4-26.8) mmol/L Cord VBG Base Excess (-7.7-1.9) mEq/L Cord VBG O2 Sat (<68) % Barometric Pressure mm/Hg Blood Gas Comments Blood Type A Positive Antibody Screen NEGATIVE Crossmatch See Detail Resident Activity Tracking Resident Involvement: Resident Care Provided Care Provided: Adult Hospital Medicine and OB Delivery
[2019-06-08 07:40] LABS: Hemoglobin 9.3 g/dL (12.0-16.0)
[2019-06-08] MEDS: ACETAMINOPHEN 325 MG TAB PO PRN ×2 (08:42→14:23)
[2019-06-08] MEDS: DOCUSATE SODIUM 100 MG CAP PO SCH ×2 (08:42→20:26)
[2019-06-08] MEDS: PRENATAL VITAMIN 1 TAB PO SCH (08:42)
[2019-06-08] MEDS ORDERED: bisacodyL 5 MG TABEC PO SCH (20:00)
[2019-06-09] MEDS: IBUPROFEN 600 MG TAB PO PRN ×2 (01:19→07:14)
[2019-06-09 06:39] LABS: Hematocrit (blood only) 26.2 % (37-47)
[2019-06-09] MEDS: DOCUSATE SODIUM 100 MG CAP PO SCH (08:10)
[2019-06-09] MEDS: PRENATAL VITAMIN 1 TAB PO SCH (08:10)
--- NOTE | 2019-06-09 08:18 | Obstetrical Progress Note ---
Date of Service June 09, 2019 Assessment & Plan (1) Encounter for care and examination after delivery: Recovering well. Hgb stable at 9 and patient feeling quite well. Ready for D/C home today. Instructions reviewed. (2) hemorrhage: stable s/p 2u RBC. Subjective Ambulation: ambulating normally (no dizziness or lightheadedness. Good energy today.) Voiding: no voiding problems Passing Gas:: Yes Diet Tolerance:: regular diet Lochia:: Small Feeding Type:: breast feeding Physical Exam Constitutional WD/WN, vitals as above Eyes PERRL, conjunctivae normal, anicteric sclerae Neck normal visual inspection Respiratory normal respiratory effort and able to speak in complete sentences; no respiratory distress and no labored breathing Cardiovascular Rate/Rhythm: regular rate and regular rhythm Extremities: no edema Chest (Breasts) Chest: normal inspection of chest Gastrointestinal (Abdomen) Inspection/Auscultation: abdomen normal to inspection Soft, postgravid Psychiatric A+Ox3, euthymic affect Genitourinary OB Exam Abdomen: + fundal height Fundus: + firm and + relation to umbilicus (fundus just below umbilicus); not tender Results & Data Vital Signs (Past 12 Hours) Vital Signs Temp Pulse Resp BP Pulse Ox 06/08/19 23:30 97.9 F 81 20 112/60 100
--- NOTE | 2019-06-10 07:39 | Discharge Summary ---
Date of Service June 10, 2019 Admission HPI Per Admitting Provider 29yo at 37+wks egsharon presents to L&D with above cc. Patient had ctx all day yesterday that became closer and stronger overnight. Came to L&D in [facility] today and was 5cm with regular ctx pattern and was admitted in labor. pnc c/b 1. GBS Pos pnl rh pos, rubella immune, gbs pos obh: G1 gynh: no stds, normal pap smears pmh: h/o migraines psh: neg Discharge Data Consultations 06/07/19 03:18 Consult Anesthesiology Stat Hospital Course (1) Supervision of normal first : Upon admission the patient was 5 cm dilated up. The patient was uncomfortable, anesthesia was consulted, and an epidural was placed. For the positive GBS she was started on penicillin, 6,000,000 unit loading dose and 4,000,000 units every 4 hours till delivery. After her second dose of penicillin she had artificial rupture of membranes for clear fluid. The patient progressed to full dilatation and began her second stage. She pushed for approximately 20 minutes delivering a viable male with description as above. Cord was clamped and cut, cord gases and cord blood samples were obtained. Placenta delivered spontaneously. Inspection of the perineum showed a midline second-degree laceration, with a second-degree left periurethral laceration. Both lacerations were repaired with 4-0 Vicryl. Estimated blood loss 300 cc. Sponge and needle count was correct. In the immediate . The patient had difficulty emptying her bladder. In addition she displayed orthostatic changes with ambulation and could not remain upright. 4 hours post delivery the patient was straight cathed for 500 cc of urine and bleeding decreased. Pelvic examination at that time showed an enlarged uterus and a 1000 cc of clotted and unclotted blood were evacuated from the uterus. Given the previous orthostatic changes and the amount of blood loss at that time, the patient was transfused 2 units of packed red blood cells. Elkins catheter was inserted in remain there for the next 18 hours. On day 1. The catheter was removed and her hemoglobin came back at 9.2. The patient was able to ambulate without orthostatic changes. On the 2nd day she remained hemodynamically stable and requested discharge. Routine discharge instructions were given and a prescription for iron sulfate. The patient will follow up in the office in 6 weeks time for check, but is always she was instructed to call with any questions problems or difficulties.
== END 2019-06-09 14:20 | disposition home or self-care (01) | DRG 807 ==
LOC: OPB 02:51 → 4S1 02:53 → 4S2 06-08 00:52